=== PATIENT | female | born 1945 | race Caucasian/White ===

== ENCOUNTER 2023-07-02 02:16 | Emergency (ER) | payer MEDICARE, MEDICAID ==
[~2023-07-02] VITALS: Ht 160 cm; Wt 44.5 kg
[2023-07-02 02:24] VITALS: BP_SYST 95; PULSE 85; RESP 19; TEMP 97.6; O2SAT 97
[2023-07-02] MEDS ORDERED: FAMO-132 PO (02:42)
[2023-07-02] MEDS ORDERED: LORA10TA7 PO (02:43)
[2023-07-02 02:54] VITALS: BP_SYST 104; PULSE 80; RESP 16; TEMP 97.6; O2SAT 97
== END 2023-07-02 02:54 | disposition home or self-care (01) ==
LOC: SED 02:16
DX: T78.40XA Allergy, unspecified, initial encounter (principal); R21 Rash and other nonspecific skin eruption; Z85.3 Personal history of malignant neoplasm of breast; Z85.05 Personal history of malignant neoplasm of liver; Z79.899 Other long term (current) drug therapy; X58.XXXA Exposure to other specified factors, initial encounter
CPT/HCPCS: 99282